=== PATIENT | female | born 1980 | race Caucasian/White ===

== ENCOUNTER 2019-06-01 11:19 | Emergency (ER) | payer SELFPAY ==
[~2019-06-01] VITALS: Ht 160 cm; Wt 65.8 kg
[2019-06-01 11:36] VITALS: BP 125/66
[2019-06-01] MEDS ORDERED: MECLIZINE HCL 12.5 MG TABLET. PO STA (11:42)
[2019-06-01] MEDS ORDERED: MECL25TA3 PO ×2 (11:51→12:21)
--- NOTE | 2019-06-01 11:51 | PHYS DOC ---
Past Medical History Past Medical History: No Pertinent History Past Surgical History: No Surgical History Alcohol Use: Occasionally Drug Use: Marijuana Adult General Chief Complaint Chief Complaint: DIZZY/LIGHT HEADED HPI HPI Patient is a 39 year old female who presents with dizziness, nausea, vomiting, right ear pain, has been ongoing for 3 days. The patient states she had an episode of this around a year ago, and around 6 years ago that eventually impro samreen. The patient is worse in the morning when she wakes up. The patient rates her pain as 8 out of 10 in severity and states it is right ear that hurts. The patient describes the dizziness as the room spinning. Review of Systems Review of Systems Constitutional: Denies fever or chills [] Eyes: Denies change in visual acuity, redness, or eye pain [] HENT: Reports R ear pain. Denies nasal congestion or sore throat [] Respiratory: Denies cough or shortness of breath [] Cardiovascular: No additional information not addressed in HPI [] GI: Reports nausea, and vomiting. Denies abdominal pain, bloody stools or diarrhea [] : Denies dysuria or hematuria [] Musculoskeletal: Denies back pain or joint pain [] Integument: Denies rash or skin lesions [] Neurologic: Reports vertigo. Denies headache, focal weakness or sensory changes [] Endocrine: Denies polyuria or polydipsia [] Complete systems were reviewed and found to be within normal limits, except as documented in this note. Current Medications Current Medications Current Medications Medications (Trade) Dose Ordered Sig/Fang Start Time Stop Time Status Last Admin Dose Admin Meclizine HCl (Antivert) 25 mg 1X STAT 06/01/19 11:42 06/01/19 11:47 DC 06/01/19 11:50 25 MG Allergies Allergies Allergies Coded Allergies Type Severity Reaction Last Updated Verified No Known Drug Allergies 06/01/19 No Physical Exam Physical Exam Constitutional: Well developed, well nourished, no acute distress, non-toxic appearance. [] HENT: Normocephalic, atraumatic, bilateral external ears normal, bilateral tympanic membranes are pearly nuno, oropharynx moist, no oral exudates, nose normal. [] Eyes: PERRLA, EOMI, conjunctiva normal, no discharge. Nystagmus on [place]. Neck: Normal range of motion, no tenderness, supple, no stridor. [] Cardiovascular:Heart rate regular rhythm, no murmur [] Lungs & Thorax: Bilateral breath sounds clear to auscultation [] Abdomen: Bowel sounds normal, soft, no tenderness, no masses, no pulsatile masses. [] Skin: Warm, dry, no erythema, no rash. [] Back: No tenderness, no CVA tenderness. [] Extremities: No tenderness, no cyanosis, no clubbing, ROM intact, no edema. [] Neurologic: +Romberg test. The patient is swaying to the right. Alert and oriented X 3 Psychologic: Affect normal, judgement normal, mood normal. [] Current Patient Data Vital Signs Vital Signs Date Time Temp Pulse Resp B/P (MAP) Pulse Ox O2 Delivery O2 Flow Rate FiO2 06/01/19 11:36 98.4 83 16 125/66 (85) 97 Room Air 98.4 Lab Values Laboratory Tests Test 06/01/19 11:37 POC Urine HCG, Qualitative Hcg negative (Negative) EKG EKG [] Radiology/Procedures Radiology/Procedures [][facility] [address] [place] [address] IMAGING REPORT Signed PATIENT: KARINA HARRINGTON ACCOUNT: [id number] : 1980 LOCATION: ER AGE: 39 SEX: F EXAM STATUS: REG ER ORD. PHYSICIAN: THAO GIPSON APRN REASON: dizziness PROCEDURE: CT HEAD WO CONTRAST CT HEAD WO CONTRAST History: Dizziness. Comparison: None. Technique: Noncontrast CT imaging was performed of the head. Exposure: One or more of the following individualized dose reduction techniques were utilized for this examination: 1. Automated exposure control 2. Adjustment of the mA and/or kV according to patient size 3. Use of iterative reconstruction technique. Findings: No intracranial hemorrhage. No mass effect. No hydrocephalus. Extra-axial spaces are unremarkable. Imaged orbits are unremarkable. Imaged paranasal sinuses and mastoid air cells are clear. Impression: 1. No acute intracranial abnormality. Electronically signed by: Ti Waters DO (06/01/2019 12:06 PM) [id number] DICTATED and SIGNED BY: TI WATERS DO DATE: 06/01/19 1206 Course & Med Decision Making Course & Med Decision Making Pertinent Labs and Imaging studies reviewed. 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 We'll give the patient meclizine 1 the ER, and then we'll also obtain a CT of the head to rule out acoustic neuroma. Dragon Disclaimer Dragon Disclaimer This electronic medical record was generated, in whole or in part, using a voice recognition dictation system. Departure Departure Impression: Primary Impression: Vertigo Disposition: HOME, SELF-CARE Condition: STABLE Referrals: NO PCP (PCP) KEYSHA HERNADEZ MD Patient Instructions: Benign Positional Vertigo Additional Instructions: Thank you for visiting [facility]. We appreciate you trusting us with your care. If any additional problems come up don't hesitate to return to visit us. Please follow up with your primary care provider so they can plan additional care if needed and know about the problem that you had. If symptoms worsen come back to the Emergency Department. Any concerning symptoms that start such as chest pain, shortness of air, weakness or numbness on one side of the body, running high fevers or any other concerning symptoms return to the ER. This continues please follow up with ENT. Scripts Meclizine Hcl (MECLIZINE HCL) 25 Mg Tablet 1 TAB PO PRN TID PRN for DIZZINESS, #30 TAB Prov: THAO GIPSON APRN 06/01/19 THAO GIPSON APRN Jun 01, 2019 11:51
--- NOTE | 2019-06-01 12:09 | RAD ---
CT HEAD WO CONTRAST History: Dizziness. Comparison: None. Technique: Noncontrast CT imaging was performed of the head. Exposure: One or more of the following individualized dose reduction techniques were utilized for this examination: 1. Automated exposure control 2. Adjustment of the mA and/or kV according to patient size 3. Use of iterative reconstruction technique. Findings: No intracranial hemorrhage. No mass effect. No hydrocephalus. Extra-axial spaces are unremarkable. Imaged orbits are unremarkable. Imaged paranasal sinuses and mastoid air cells are clear. Impression: 1. No acute intracranial abnormality. Electronically signed by: Ti Waters DO (06/01/2019 12:06 PM) [id number]
== END 2019-06-01 12:30 | disposition home or self-care (01) ==
LOC: ER 11:19
DX: R42 Dizziness and giddiness (principal); R11.2 Nausea with vomiting, unspecified; H92.01 Otalgia, right ear
CPT/HCPCS: 70450; 81025; 99284; J8597